=== PATIENT | male | born 1930 | race Caucasian/White ===

== ENCOUNTER 2017-10-10 14:17 | Day surgery (SDC) | payer MEDICARE ==
[2017-10-10 14:30] VITALS: BP 131/73; PULSE 69; RESP 20; TEMP 98.4; O2SAT 97
== END 2017-10-10 15:30 | disposition home or self-care (01) ==
LOC: HROP 14:17 → HRIP 14:23 → HROP 15:30
PROVIDERS: ATTEND Internal Medicine
DX: Z01.818 Encounter for other preprocedural examination (principal); C22.0 Liver cell carcinoma

== ENCOUNTER → 2017-10-17 | Outpatient (CLI) | payer MEDICARE ==
--- NOTE | 2017-10-17 14:47 | RADRPT ---
EXAM DATE/TIME: 10/17/2017 12:16 [facility] COMPARISON : No previous studies available for comparison. INDICATIONS : Evaluate for treatment options, liver cancer. The original consultation note cannot be located. The following is a repeat dictation. Some details a re therefore excluded. HISTORY OF PRESENT ILLNESS: Mr. Thompson is a very pleasant 86-year-old male accompanied by his son and on this visit for evalu ation of newly diagnosed hepatocellular carcinoma. He is largely without complaints and is reasonably functional (ECOG 1). Recent CT examination demonstrates a 5.5 cm mass in segment 4 of the liver with out apparent extra hepatic metastatic disease. IMAGING STUDIES: CT dated demonstrates 5.5 cm mass in segment 4 of the liver. Liver does not demonstrate sig nificant volume loss. No ascites. Spleen is not prominent and portal vein is patent. No definitive ex trahepatic disease. 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 He h as a relatively good functional status and assumed intact hepatic function although recent labs are n ot available. He has declined hepatic resection. He is a reasonable candidate for locoregional therap y. Recommendation would be to begin with superselective chemoembolization with intent to perform wendy tive intent microwave ablation depending on how he tolerates the embolization procedure. PLAN: Superselective RABIA chemoembolization with tentative plan for microwave ablation. TIME SPENT: 30 minutes. Alexander Dean MD on October 17, 2017 at 14:32 Board Certified Radiologist. This report was verified electronically.
== END ==
LOC: HRAD 11:55
PROVIDERS: ATTEND Internal Medicine
DX: C22.8 Malignant neoplasm of liver, primary, unspecified as to type (principal)

== ENCOUNTER 2017-11-02 06:30 | Observation (INO) | payer MEDICARE ==
[~2017-11-02] VITALS: Ht 180.3 cm; Wt 111.4 kg
[2017-11-02] VITALS (11 sets, daily range): BP systolic 120–152; BP diastolic 62–87; PULSE 57–64; RESP 16–20; TEMP 97.4–97.9; O2SAT 91–96
[2017-11-02] MEDS ORDERED: GLIP5TAB8 PO (07:14)
[2017-11-02] MEDS ORDERED: ATOR40TA16 PO (07:14)
[2017-11-02] MEDS ORDERED: COQ150CA (07:14)
[2017-11-02] MEDS ORDERED: SITA25 PO (07:14)
[2017-11-02] MEDS ORDERED: AMIO200T PO (07:14)
[2017-11-02] MEDS ORDERED: DILT120T PO (07:14)
[2017-11-02] MEDS ORDERED: BICA50TA PO (07:14)
[2017-11-02] MEDS ORDERED: METO100T PO (07:14)
[2017-11-02] MEDS ORDERED: LISI-519 PO (07:14)
[2017-11-02] MEDS ORDERED: LEVO150T7 PO (07:14)
[2017-11-02] MEDS ORDERED: INSU1INJ5 SQ (07:14)
[2017-11-02] MEDS ORDERED: FURO1TAB60 PO (07:14)
[2017-11-02] MEDS ORDERED: WARF-60 PO (07:14)
[2017-11-02 07:58] LABS: AUTOMATED NEUTROPHIL # 2.9 TH/MM3 (1.8-7.7); BASOPHIL % 0.6 % (0.0-2.0); EOSINOPHIL # 0.2 TH/MM3 (0-0.4); EOSINOPHIL % 4.2 % (0.0-4.0); HEMATOCRIT 40.7 % (39.0-51.0); HEMOGLOBIN 14.2 GM/DL (13.0-17.0); LYMPH % 16.8 % (9.0-44.0); LYMPHOCYTE # 0.7 TH/MM3 (1.0-4.8); MEAN CELL VOLUME 93.8 FL (80.0-100.0); MEAN CORPUSCULAR HEMOGLOBIN 32.7 PG (27.0-34.0); MEAN CORPUSCULAR HGB CONC 34.9 % (32.0-36.0); MEAN PLATELET VOLUME 7.9 FL (7.0-11.0); MONO % 11.3 % (0.0-8.0); MONOCYTE # 0.5 TH/MM3 (0-0.9); NEUT % 67.1 % (16.0-70.0); PLATELET COUNT 165 TH/MM3 (150-450); RED BLOOD COUNT 4.34 MIL/MM3 (4.50-5.90); RED CELL DISTRIBUTION WIDTH 14.4 % (11.6-17.2); WHITE BLOOD COUNT 4.3 TH/MM3 (4.0-11.0)
[2017-11-02 08:02] LABS: BICARBONATE 27.6 MEQ/L (21.0-32.0); BLOOD UREA NITROGEN 31 MG/DL (7-18); CALCIUM 8.2 MG/DL (8.5-10.1); CHLORIDE 103 MEQ/L (98-107); CREATININE 1.69 MG/DL (0.60-1.30); GLOMERULAR FILTRATION RATE 39 ML/MIN (>89); GLUCOSE,RANDOM 142 MG/DL (74-106); SODIUM (NA) 138 MEQ/L (136-145)
[2017-11-02 08:09] LABS: INTERNATIONAL NORMALIZED RATIO 1.4 RATIO; PROTHROMBIN TIME - PATIENT 14.3 SEC (9.8-11.6)
[2017-11-02 08:41] LABS: ALBUMIN 3.5 GM/DL (3.4-5.0); ALT (GPT) 39 U/L (12-78); AST (GOT) 48 U/L (15-37)
[2017-11-02 08:43] LABS: ALKALINE PHOSPHATASE 159 U/L (45-117); TOTAL BILIRUBIN ADULT 0.9 MG/DL (0.2-1.0); TOTAL PROTEIN 7.3 GM/DL (6.4-8.2)
[2017-11-02] MEDS ORDERED: MIDAZOLAM HCL 2 MG/2 ML VIAL ONE (11:25)
[2017-11-02] MEDS ORDERED: DOXOrubicin HCL 10 MG/5 ML INJ IV ONE (12:00)
[2017-11-02] MEDS ORDERED: IOHEXOL 350 MG/ML 50 ML BTL (for RAD DIAG) OTHER ONE (13:00)
--- NOTE | 2017-11-02 14:57 | RADRPT ---
EXAM DATE/TIME: 11/02/2017 11:04 [facility] COMPARISON: No previous studies available for comparison. INDICATIONS : 86-year-old male with history of newly diagnosed 5.5 cm hepatocellular carcinoma in segment 4 of the liver. Patient was seen and evaluated in interventional radiology clinic and now presents for subsele ctive RABIA chemoembolization with potential followup ablation. MEDICAL HISTORY : Chronic renal disease, Hypothyroidism, A-Fib, HTN, Diabetes, Prostate cancer SURGICAL HISTORY : Pacemaker, Liver biopsy, Cholecystectomy ENCOUNTER: Initial ACUITY: 2 months PAIN SCORE: 0/10 FLUORO TIME: 13.4 minutes IMAGE SERIES: 7 ACCESS SITE: Left Radial artery SEDATION TIME: 75 minutes CONTRAST: 1.) 75 cc Omnipaque (iohexol) 350 MEDICATION(S): 1.) 3.5 mg midazolam (Versed) IV 2.) 175 mcg fentanyl (Sublimaze) IV DEVICE(S): 1.) Right hepatic artery 70-150mc LC Bead 2.) Left radial artery 24CM Radial band PROCEDURE : 1. Ultrasound-guided puncture of the left radial artery. 2. Conscious sedation with continuous EKG and oximetry monitoring. 3. Selective catheter placement in the common hepatic artery with angiography 4. Subselective catheter placement in the proper hepatic artery with subselective angiography 5. Subselective catheter placement in the right hepatic artery with subselective angiography 6. Subselective catheter placement in the intermediate hepatic artery with subselected angiography 7. RABIA chemoembolization of the intermediate hepatic artery branches The risks, benefits and alternatives to the procedure were explained and verbal and written consent w as obtained. The site was prepped in sterile fashion. Full sterile technique was used, including ca p, mask, sterile gloves and gown and a large sterile sheet. Hand hygiene and 2% chlorhexidine and/or betadine/alcohol prep was utilized per protocol for cutaneous antisepsis. Sterile gel and sterile p robe cover were utilized for ultrasound guidance. The skin and subcutaneous tissues were infiltrated with local anesthetic solution. Patient passed a Barbeau test prior to the procedure. Ultrasound evaluation of the left radial artery demonstrated the artery to be patent. Single image was obtained and placed in PACS archive. Micropun cture needle was advanced into the left radial artery under direct ultrasound guidance and exchanged for a slim 5 Bulgarian sheath. 5 Bulgarian Colmenares catheter was advanced into the celiac artery and into the common hepatic artery. Angiography was performed. This demonstrated standard celiac anatomy with a large enhancing mass in the central liver consistent patient's known segment 4 mass. There are mult iple additional apparent satellite enhancing lesions. Catheter was then advanced into the right hepat ic artery and angiography was performed. Although satellite lesions are demonstrated with injection o f the right hepatic artery the main mass is not supplied significantly by the right hepatic arteries. Renegade Highflow microcatheter was advanced into the intermediate hepatic artery and angiography wa s performed. This demonstrated predominant supply to the segment 4 mass. Therefore, the intermediate hepatic artery branches were embolized with 1 vial of 75-150 um Danii beads infused with 75 mg Adriamy rosibel. Followup angiography demonstrated near stasis of flow in the distal branches. No additional sign ificant residual dominant mass enhancement was demonstrated with pullback angiography in the common h epatic artery. Arterial choline CT examination was then performed. Unfortunately, this did not suffic iently demonstrate the anatomy for additional procedure planning. Catheters and wires were then remov ed. Sheath was removed and hemostasis obtained at the puncture site with radial compression device. Conscious sedation was performed with the prescribed dosages and duration as above in the presence of an independent trained radiology nurse to assist in the monitoring of the patient. EKG and oximetry remained stable throughout the procedure. CONCLUSION: 1. Hepatic angiography confirms large central hepatic mass consistent with patient's known 5.5 cm seg ment 4 hepatocellular carcinoma. Unfortunately, there are additional enhancing satellite nodules supp lied by right hepatic artery branches. 2. Technically successful subselective RABIA chemoembolization of segment 4 hepatic artery branches. Plan: Patient will be admitted for overnight observation and symptom management. Tentative plan for n onselective chemoembolization of the right hepatic arteries vs Y90 if he tolerates this embolization well. Alexander Dean MD on November 02, 2017 at 14:44 Board Certified Radiologist. This report was verified electronically.
--- NOTE | 2017-11-02 15:28 | HHI.HP ---
[facility] Lora Monson MD Admission Diagnosis Diagnoses: Travel History International Travel<30 Days: No Contact w/Intl Traveler <30 Da: No Traveled to Known Affected Are: No History of Present Illness History from patient with his at the bedside, her angina from medical records. Patient had undergone superselective RABIA chemoembolization by interventional radiology today November 02, 2017. Medical team was requested to by IR physician for admission to the hospital for postop management and observation. Patient was seen in radiology outpatient recovery unit. is at the bedside. Patient and reported that he was just recently first diagnosed in April while he was in [place] from her routine blood work. During that time, he had undergone CT imaging studies, and MRI of his abdomen. He also had needle biopsy of his liver done and after this, it was time for them to come to [place] as they spend their shen here. While he was here in [place], his doctor is from [place] has called him and advised him to come back to [place] to get resection of his tumor. However he and his decided to stay in [place] to get further treatment because of severe weather conditions there during this winter. They have seen oncologist at [facility]. She has referred patient to see Dr. Wilder who had long discussion with them. Patient and were not sure whether hepatic resection was a better option or chemoembolization was there are option. However they are under impression from their doctors and discussion with surgical oncology that minimally invasive procedures which be better route for him due to his multiple comorbid conditions, age, anticoagulation status. They report to me that today during the procedure there was some findings which showed his liver lesion may not be confined to just one area. Patient and family states that depending on how he does with this chemoembolization, there may be further treatment in the next 1 week or so. INR notes from October 17, 2017 reviewed. Patient reports he has had recent tooth infection and has been on antibiotics clindamycin. He reports because of this tooth infection, he also has been having headaches for the past 2 weeks. He takes Tylenol once in a while for it. Patient has history of atrial fibrillation for which she is taking Coumadin. However he was off Coumadin for about 5 days because of this tooth surgery and then he remains back on it for about 3 days and now he has been off it for another 5 days due to this upcoming chemo embolization today. His INR today is 1.4. His warehouse laborer from [place] is the one managing his anticoagulation. 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 sleep apnea ckd hypothyroidism hepatocellular carcinoma prostate cancer s/p radiation seeds treatment 2004 or so Past Surgical History tooth extraction embolization carpal tunnel cholecystectomy prostate cancer seeding ppm Allergies: Coded Allergies: No Known Allergies (Verified Allergy, Unknown, 11/02/17) Family History dm in multiple members Social History never smoked, no etoh abuse, no drugs 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 SKIN: No rashes, ecchymoses or lesions. Cool and dry. HEAD: Atraumatic. Normocephalic. No temporal or scalp tenderness. EYES: Pupils equal round and reactive. Extraocular motions intact. No scleral icterus. No injection or drainage. ENT: Nose without bleeding, purulent drainage or septal hematoma. Airway patent. NECK: Trachea midline. No JVD. Supple, nontender, no meningeal signs. CARDIOVASCULAR: Regular rate and rhythm without murmurs, gallops, or rubs. RESPIRATORY: Clear to auscultation. Breath sounds equal bilaterally. No wheezes , rales, or rhonchi. GASTROINTESTINAL: Abdomen soft, non-tender, nondistended No guarding. MUSCULOSKELETAL: Extremities without clubbing, cyanosis, or edema. No calf tenderness. Left radial access site for embolization NEUROLOGICAL: Awake and alert. Motor and sensory grossly within normal limits. Normal speech. Laboratory Laboratory Tests Test 11/02/17 07:36 White Blood Count 4.3 Red Blood Count 4.34 Hemoglobin 14.2 Hematocrit 40.7 Mean Corpuscular Volume 93.8 Mean Corpuscular Hemoglobin 32.7 Mean Corpuscular Hemoglobin Concent 34.9 Red Cell Distribution Width 14.4 Platelet Count 165 Mean Platelet Volume 7.9 Neutrophils (%) (Auto) 67.1 Lymphocytes (%) (Auto) 16.8 Monocytes (%) (Auto) 11.3 Eosinophils (%) (Auto) 4.2 Basophils (%) (Auto) 0.6 Neutrophils # (Auto) 2.9 Lymphocytes # (Auto) 0.7 Monocytes # (Auto) 0.5 Eosinophils # (Auto) 0.2 Basophils # (Auto) 0.0 CBC Comment DIFF FINAL Differential Comment Prothrombin Time 14.3 Prothromb Time International Ratio 1.4 Activated Partial Thromboplast Time 27.3 Blood Urea Nitrogen 31 Creatinine 1.69 Random Glucose 142 Total Protein 7.3 Albumin 3.5 Calcium Level 8.2 Alkaline Phosphatase 159 Aspartate Amino Transf (AST/SGOT) 48 Alanine Aminotransferase (ALT/SGPT) 39 Total Bilirubin 0.9 Sodium Level 138 Potassium Level 4.2 Chloride Level 103 Carbon Dioxide Level 27.6 Anion Gap 7 Estimat Glomerular Filtration Rate 39 Result Diagram: 11/02/17 0736 11/02/17 0736 Imaging Last 48 hours Impressions Embolization, Transcatheter 11/02/17 0000 Signed Impressions: Service Date/Time: October 11:04 - CONCLUSION: 1. Hepatic angiography confirms large central hepatic mass consistent with patient's known 5.5 cm segment 4 hepatocellular carcinoma. Unfortunately, there are additional enhancing satellite nodules supplied by right hepatic artery branches. 2. Technically successful subselective RABIA chemoembolization of segment 4 hepatic artery branches. Plan: Patient will be admitted for overnight observation and symptom management. Tentative plan for nonselective chemoembolization of the right hepatic arteries vs Y90 if he tolerates this embolization well. MD Beatriz Ramirez VTE Risk Assessment Beatriz VTE Risk Assessment: Mod/High Risk (score >= 2) Caprini Risk Assessment Model Point Value = 1 Point Value = 2 Point Value = 3 Point Value = 5 Age 41-60 Minor surgery BMI > 25 kg/m2 Swollen legs Varicose veins or History of unexplained or recurrent spontaneous Oral contraceptives or hormone replacement Sepsis (< 1 month) Serious lung disease, including pneumonia (< 1 month) Abnormal pulmonary function Acute myocardial infarction Congestive heart failure (< 1 month) History of inflammatory bowel disease Medical patient at bed rest Age 61-74 Arthroscopic surgery Major open surgery (> 45 min) Laparoscopic surgery (> 45 min) Malignancy Confined to bed (> 72 hours) Immobilizing plaster cast Central venous access Age >= 75 History of VTE Family history of VTE Factor V Leiden Prothrombin [id number] Lupus anticoagulant Anticardiolipin antibodies Elevated serum homocysteine Heparin-induced thrombocytopenia Other congenital or acquired thrombophilia Stroke (< 1 month) Elective arthroplasty Hip, pelvis, or leg fracture Acute spinal cord injury (< 1 month) Prophylaxis Regimen Total Risk Factor Score Risk Level Prophylaxis Regimen 0-1 Low Early ambulation 2 Moderate Order ONE of the following: *Sequential Compression Device (SCD) *Heparin 5000 units SQ BID 3-4 Higher Order ONE of the following medications: *Heparin 5000 units SQ TID *Enoxaparin/Lovenox 40 mg SQ daily (WT < 150 kg, CrCl > 30 mL/min) *Enoxaparin/Lovenox 30 mg SQ daily (WT < 150 kg, CrCl > 10-29 mL/min) *Enoxaparin/Lovenox 30 mg SQ BID (WT < 150 kg, CrCl > 30 mL/min) AND/OR *Sequential Compression Device (SCD) 5 or more Highest Order ONE of the following medications: *Heparin 5000 units SQ TID (Preferred with Epidurals) *Enoxaparin/Lovenox 40 mg SQ daily (WT < 150 kg, CrCl > 30 mL/min) *Enoxaparin/Lovenox 30 mg SQ daily (WT < 150 kg, CrCl > 10-29 mL/min) *Enoxaparin/Lovenox 30 mg SQ BID (WT < 150 kg, CrCl > 30 mL/min) AND *Sequential Compression Device (SCD) Assessment and Plan Assessment and Plan Impression: Status post hepatic angiography Status post successful subselective RABIA chemoembolization of segment 4 hepatic artery branches by IR November 02, 2017. 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 Patient is admitted overnight for observation. There is tentative plan for nonselective chemoembolization of the right hepatic arteries versus Y 90 in future. Checked with IR physician. Coumadin can be restarted 24 hours post procedure. Will restart on November 03, 2017 around 3 PM. Nursing also checked patient's clindamycin home dose with his pharmacy. Will resume. Clindamycin 150 mg p.o. every 8 hours 5 more days. Lactobacillus. We will monitor his fingersticks. Hold oral hypoglycemics. Continue long-acting insulin and will cover with sliding scale coverage if needed. Continue patient's home dose of levothyroxine. Patient takes levothyroxine 150 mcg daily. He takes additional 25 mcg on Wednesdays and Fridays as well. This was checked with his . DVT prophylaxis. Will start Coumadin tomorrow. Discussed Condition With Patient, nursing staff, at the bedside Yudi Fisher MD Nov 02, 2017 15:28
--- NOTE | 2017-11-02 15:56 | PD.RAD ---
Post Procedure Progress Note Pre Procedure Diagnosis: (1) HCC (hepatocellular carcinoma) Post Procedure Diagnosis: (1) HCC (hepatocellular carcinoma) Procedure Date: Nov 02, 2017 Supervising Radiologist: Alexander Dean Proceduralist/Assist: Greg Apple, RT(R), Chang Andino RT(R) Anesthesia: Conscious Sedation Plan of Activity Patient to Unit: ROPU Patient Condition: Good See PACS Report for procedural detail/treatment Alexander Dean MD Nov 02, 2017 15:56
[2017-11-02] MEDS ORDERED: GLUCAGON 1 MG/ML VIAL OTHER PRN (16:00)
[2017-11-02] MEDS ORDERED: DEXTROSE 50% IN WATER 50 ML VIAL(D50) IV PUSH PRN (16:00)
[2017-11-02] MEDS ORDERED: ONDANSETRON HCL 4 MG/2 ML VIAL IV PUSH PRN (16:00)
[2017-11-02] MEDS ORDERED: MORPHINE SULFATE 2 MG/ML INJ IM PRN (16:00)
[2017-11-02] MEDS: INSULIN ASPART SUPPLEMENTAL SCALE SQ SCH ×2 (17:00→22:00)
[2017-11-02] MEDS: LACTOBACILLUS ACIDOPHILUS TAB PO SCH (17:50)
[2017-11-02] MEDS: CLINDAMYCIN 150 MG CAP PO SCH ×2 (17:50→21:50)
[2017-11-02] MEDS ORDERED: INSULIN DETEMIR 100 UNITS/ML VIAL SQ SCH (21:00)
[2017-11-02] MEDS ORDERED: ATORVASTATIN 40 MG TAB PO SCH (21:00)
[2017-11-02] MEDS: METOPROLOL TARTRATE 50 MG TAB PO SCH (21:51)
[2017-11-02] MEDS ORDERED: WARFARIN SOD 6 MG TAB PO SCH (22:00)
[2017-11-03 00:33] VITALS: BP 135/70; PULSE 72; RESP 18; TEMP 97.4; O2SAT 95
[2017-11-03 05:15] VITALS: BP 126/66; PULSE 71; RESP 18; TEMP 97.6; O2SAT 94
[2017-11-03] MEDS: CLINDAMYCIN 150 MG CAP PO SCH ×2 (05:33→13:16)
[2017-11-03] MEDS ORDERED: LEVOTHYROXINE SODIUM 150 MCG TAB PO SCH (06:00)
[2017-11-03] MEDS ORDERED: LEVOTHYROXINE SODIUM 25 MCG TAB PO SCH (06:00)
[2017-11-03 08:23] VITALS: BP 137/66; PULSE 64; RESP 20; TEMP 97.6; O2SAT 97
--- NOTE | 2017-11-03 08:25 | HHI.PR ---
Subjective Remarks in no acute distress. resting comfortably. denies pain. no new complaints. Objective Vitals Vital Signs Date Time Temp Pulse Resp B/P (MAP) Pulse Ox O2 Delivery O2 Flow Rate FiO2 11/03/17 05:15 97.6 71 18 126/66 (86) 94 11/03/17 00:33 97.4 72 18 135/70 (91) 95 11/02/17 20:51 97.4 63 18 128/67 (87) 96 11/02/17 17:59 64 20 152/75 (100) 96 11/02/17 16:35 60 18 141/75 (97) 95 11/02/17 16:05 63 18 120/63 (82) 96 11/02/17 15:35 61 16 128/75 (92) 96 11/02/17 15:05 57 18 137/81 (99) 94 11/02/17 14:35 60 18 125/73 (90) 94 11/02/17 14:20 60 18 130/77 (94) 92 11/02/17 14:05 60 16 137/78 (97) 94 11/02/17 13:50 97.8 61 16 120/62 (81) 94 Result Diagram: 11/02/17 0736 11/02/17 0736 Imaging Last Impressions Embolization, Transcatheter 11/02/17 0000 Signed Impressions: Service Date/Time: October 11:04 - CONCLUSION: 1. Hepatic angiography confirms large central hepatic mass consistent with patient's known 5.5 cm segment 4 hepatocellular carcinoma. Unfortunately, there are additional enhancing satellite nodules supplied by right hepatic artery branches. 2. Technically successful subselective RABIA chemoembolization of segment 4 hepatic artery branches. Plan: Patient will be admitted for overnight observation and symptom management. Tentative plan for nonselective chemoembolization of the right hepatic arteries vs Y90 if he tolerates this embolization well. Alexander Dean MD Objective Remarks GENERAL: This is a well-nourished, well-developed patient, in no apparent distress. CARDIOVASCULAR: Regular rate and regular rhythm without murmurs, gallops, or rubs. RESPIRATORY: Clear to auscultation. Breath sounds equal bilaterally. No wheezes , rales, or rhonchi. GASTROINTESTINAL: Abdomen soft, non-tender, nondistended. Normal, active bowel sounds MUSCULOSKELETAL: Extremities without clubbing, cyanosis, or edema. NEURO: Alert & Oriented x4 to person, place, time, situation. Moves all ext x4 Procedures hepatic angiography Medications and IVs Inpatient Medications Amiodarone HCl (Cordarone) 200 mg DAILY PO ; Start 11/03/17 at 09:00 Atorvastatin Calcium (Lipitor) 40 mg HS PO Last administered on 11/02/17at 21:51 ; Start 11/02/17 at 21:00 Bicalutamide (Casodex) 50 mg DAILY PO ; Start 11/03/17 at 09:00 Clindamycin HCl (Cleocin) 150 mg Q8HR PO Last administered on 11/03/17 05:33; Start 11/02/17 at 16:45; Stop 11/07/17 at 14:01 Dextrose (D50w (Vial) Inj) 50 ml UNSCH PRN IV PUSH HYPOGLYCEMIA-SEE COMMENTS; Start 11/02/17 at 16:00 Doxorubicin HCl (Adriamycin Inj) 75 mg STRIPER MACHINE ONCE IV Last administered on 11/02/17at 12:00; Start 11/02/17 at 12:00; Stop 11/02/17 at 12:01; Status DC Furosemide (Lasix) 40 mg DAILY PO ; Start 11/03/17 at 09:00 Glucagon (Glucagon Inj) 1 mg UNSCH PRN OTHER HYPOGLYCEMIA-SEE COMMENTS; Start 11/02/17 at 16:00 Heparin Sodium (Porcine) (Heparin Central Flush) 500 units UNSCH PRN IV FLUSH Infusaport Flush; Start 11/02/17 at 07:45 Insulin Aspart (NovoLOG SUPPLEMENTAL SCALE) 1 ACHS SLIDING SCALE SQ Last administered on 11/02/17at 22:00; Start 11/02/17 at 17:00 Insulin Detemir (Levemir Inj) 20 units HS SQ ; Start 11/02/17 at 21:00 Lactobacillus Acidophilus (Lactinex) 1 tab TID PO Last administered on 17:50; Start 11/02/17 at 18:00 Levothyroxine Sodium (Synthroid) 25 mcg MoWeFr@0600 PO Last administered on 11/03 05:33; Start 11/03/17 at 06:00 Metoprolol Tartrate (Lopressor) 50 mg BID PO Last administered on 3/8/18at 21: 51; Start 11/02/17 at 21:00 Morphine Sulfate (Morphine Inj) 2 mg Q3H PRN IM pain 5-10; Start 11/02/17 at 16: 00 Ondansetron HCl (Zofran Inj) 4 mg Q6HR PRN IV PUSH nausea; Start 11/02/17 at 16: 00 Patient Medication Teaching (Coumadin Booklet) 1 ONCE ONCE OTHER Last administered on 11/02/17at 21:52; Start 11/02/17 at 21:45; Stop 11/02/17 at 21:46; Status DC Pharmacy Profile Note 0 ml @ 0 mls/hr UNSCH OTHER ; Start 11/02/17 at 21:00 Warfarin Sodium (Coumadin) 6 mg DAILY@16 PO ; Start 11/02/17 at 22:00 A/P Assessment and Plan A: Status post hepatic angiography Status post successful subselective RABIA chemoembolization of segment 4 hepatic artery branches by IR November 02, 2017. 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 -will resume home meds- including coumadin. Discharge Planning dc home today. f/u; pcp, oncology,IR and cardiology. see med list. d/w the patient. Mary Saleem MD Nov 03, 2017 08:25
[2017-11-03] MEDS ORDERED: FUROSEMIDE 40 MG TAB PO SCH (09:00)
[2017-11-03] MEDS ORDERED: AMIODARONE 200 MG TAB PO SCH (09:00)
[2017-11-03] MEDS: METOPROLOL TARTRATE 50 MG TAB PO SCH (09:44)
[2017-11-03] MEDS: LACTOBACILLUS ACIDOPHILUS TAB PO SCH ×2 (09:45→13:16)
[2017-11-03] MEDS: INSULIN ASPART SUPPLEMENTAL SCALE SQ SCH ×2 (09:45→13:17)
[2017-11-03] MEDS: BICALUTAMIDE 50 MG TAB PO SCH ×2 (09:46→13:17)
[2017-11-03 11:56] VITALS: BP 127/60; PULSE 65; RESP 20; TEMP 98; O2SAT 96
[2017-11-03 12:41] LABS: INTERNATIONAL NORMALIZED RATIO 1.3 RATIO; PROTHROMBIN TIME - PATIENT 13.5 SEC (9.8-11.6)
[2017-11-03 12:58] LABS: BICARBONATE 28.3 MEQ/L (21.0-32.0); CALCIUM 8.3 MG/DL (8.5-10.1); CREATININE 1.47 MG/DL (0.60-1.30)
== END 2017-11-03 15:25 | disposition home or self-care (01) ==
LOC: HROP 06:30 → HRIP 06:34 → HROP 17:25 → N05A 17:30
PROVIDERS: ADMIT Internal Medicine; ATTEND Internal Medicine
DX: C22.0 Liver cell carcinoma (principal); C61 Malignant neoplasm of prostate; I12.9 Hypertensive chronic kidney disease with stage 1 through stage 4 chronic kidney disease, or unspecified chronic kidney disease; N18.9 Chronic kidney disease, unspecified; E11.22 Type 2 diabetes mellitus with diabetic chronic kidney disease; I48.91 Unspecified atrial fibrillation; G47.30 Sleep apnea, unspecified; E03.9 Hypothyroidism, unspecified; R79.1 Abnormal coagulation profile; K04.7 Periapical abscess without sinus; Z79.01 Long term (current) use of anticoagulants; Z79.899 Other long term (current) drug therapy
CPT/HCPCS: 36247; 36248; 37243; 75726; 75774; 76376; 80048; 80053; 82948; 85025; 85610; 85730; 96372; 96420; 99152; 99153; C1769; C1884; C1887; C1894; G0378; J1815; J2250; J3010; J9000; Q9967

== ENCOUNTER 2017-11-10 13:11 | Day surgery (SDC) | payer MEDICARE ==
[~2017-11-10 13:11] MED LIST: AMIO200T PO; ATOR40TA16 PO; BICA50TA PO; COQ150CA; FURO1TAB60 PO; GLIP5TAB8 PO; INSU1INJ5 SQ; LEVO150T7 PO; METO100T PO; SITA25 PO; WARF-60 PO
[2017-11-10 13:31] VITALS: BP 111/64; PULSE 67; RESP 20; TEMP 97.9; O2SAT 93
--- NOTE | 2017-11-10 15:09 | RADRPT ---
EXAM DATE/TIME: 11/10/2017 00:00 INDICATIONS : F/U chemo embolization OBJECTIVE: Temperature: 97.9 Heart Rate: 67 Blood Pressure: 111/64 Respiratory: 20 Oximetry: 93 HISTORY OF PRESENT ILLNESS: 86-year-old male with history of newly diagnosed 5.5 cm hepatocellular carcinoma in segment 4 of the liver postop day #7 status post chemoembolization. He tolerated the embolization well although he rep orts an upper respiratory infection since the procedure and ongoing issue with a dental abscess. He d enies any significant abdominal pain and denies current fevers and chills. Extensive discussion regarding findings during hepatic angiography with the patient and his family. T here were multiple additional regions of abnormal enhancement throughout the right lobe consistent wi th multifocal hepatocellular carcinoma. Explained that this now changes our treatment strategy from c urative intent embolization and ablation to salvage therapy. Salvage treatment will require nonselect nathan locoregional treatment or Sorafenib. Given his age, nonselective chemoembolization would likely b e difficult for him to tolerate. Recommend [id number] embolization for nonselective treatment. All questions were answered. The patient and his family were encouraged to discuss his treatment opti ons to include cessation of treatment. They will inform our office of their decision shortly. TIME SPENT: 30 minutes. Alexander Dean MD on November 10, 2017 at 14:49 Board Certified Radiologist. This report was verified electronically.
== END 2017-11-10 14:43 | disposition home or self-care (01) ==
LOC: HROP 13:11 → HRIP 13:15 → HROP 14:43
PROVIDERS: ATTEND Radiology Diagnostic Radiology
DX: C22.0 Liver cell carcinoma (principal); Z48.3 Aftercare following surgery for neoplasm